=== PATIENT | male | born 1950 | race Caucasian/White ===

== ENCOUNTER 2017-02-02 15:39 | Inpatient (IN) | payer OTHER ==
[~2017-02-02] VITALS: Ht 167.6 cm; Wt 65.8 kg
--- NOTE | ~2017-02-02 | EKG ---
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 : 1950 Requested By: Ashley Sanon Order Number: [id number] MD: Jn Walton Measurements Intervals [place] Rate: 60 P: 74 DC: 241 QRS: 41 QRSD: 104 T: 87 QT: 459 QTc: 459 Interpretive Statements Sinus rhythm Atrial premature complex Prolonged DC interval Probable left atrial enlargement Low voltage, extremity leads LVH with secondary repolarization abnormality Baseline wander in lead(s) V3 Compared to ECG 02/02/2017 16:50:39 Significant change was found Electronically Signed On 02-07-2017 7:35:47 CDT by Jn Walton [email or web address] <ELECTRONICALLY SIGNED> By: Jn Walton MD, [facility] 02/07/17 0735 183 183 Jn Walton MD, [facility] /EPI
--- NOTE | ~2017-02-02 | EKG ---
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 : 1950 Requested By: Randall Pressley Order Number: [id number] MD: Chetan Ramos Measurements Intervals [place] Rate: 65 P: 63 LA: 236 QRS: 27 QRSD: 106 T: 95 QT: 469 QTc: 488 Interpretive Statements Sinus rhythm Prolonged LA interval Probable left atrial enlargement Low voltage, extremity leads LVH with secondary repolarization abnormality Anterior ST elevation, probably due to LVH Borderline prolonged QT interval No previous ECG available for comparison Electronically Signed On 02-06-2017 8:18:59 CDT by Chetan Ramos [email or web address] <ELECTRONICALLY SIGNED> By: Chetan Ramos MD 02/06/17 0818 1546 1546 Chetan Ramos MD /[facility]
--- NOTE | ~2017-02-02 | CNG ---
[facility] [place] [address] CYTO-NONGYN REPORT PROCEDURE Name: LUIS GARCIA Room #: 205-P DIS IN M.R.#: [id number] Admission: 02/03/17 Date of : 54 Discharge: 02/07/17 Report #: [id number] Path Case #: [id number] CYTOPATHOLOGY REPORT COLLECTION DATE: 02/06/2017 RECEIVED DATE: 02/06/2017 SUBMITTING PHYS: Dr. Jesu Thakkar OTHER PHYS: Dr. Ashley Loco CLINICAL HISTORY: Chest pain. SPECIMEN(S) RECEIVED: A.Pleural fluid * * * * * * * * * * * * FINAL DIAGNOSIS: A. Pleural fluid: - No malignant cells identified. Reactive mesothelial cells and inflammatory cells are identified. PATHOLOGIST: Thais Lozano M.D. REPORT ELECTRONICALLY SIGNED BY: Thais Lozano M.D. DATE/TIME: 02/07/2017 14:58 * * * * * * * * * * * * GROSS PATHOLOGY: A. Pleural fluid: The specimen is submitted unfixed, labeled "Luis Garcia". Received by the Cytology Department is 10 mL of clear yellow fluid. One ThinPrep slide and a cell block were prepared. (clt 02.06.2017) DEPUTY CLERK OF SUPERIOR COURT(S): Shelley Arteaga, RUTH(ASCP), IAC INITIAL CPT CODE(S): A; 77802, 69899 Professional services performed by [facility] at [facility] [address], [place] [address] Technical services performed by [facility] at [address] [place] [address]., [address], [place] [address]. [facility] [address] [place] [address], [facility] [address] [place], [place] [address] [place] [address] [place] [address] CYTO-NONGYN REPORT PROCEDURE Name: LUIS GARCIA Room #: 205-P DIS IN M.R.#: [id number] Admission: 02/03/17 Date of : 54 Discharge: 02/07/17 Report #: [id number] Path Case #: [id number] PHONE: [phone] DIRECTOR: Todd Leigh M.D. * * * END OF REPORT * * *
--- NOTE | ~2017-02-02 | EKG ---
[address] [address] ELECTROCARDIOGRAM REPORT Name: LUIS GARCIA Room #: 205-P ADM IN M.R.#: [id number] Admission: 02/03/17 Attend Phys: Ashley Sanon Discharge: Date of : 54 Report #: [id number] THIS REPORT FOR: //name// 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 : 1950 Requested By: Ashley Sanon Order Number: [id number] MD: Chetan Ramos Measurements Intervals [place] Rate: 63 P: 32 HI: 235 QRS: 10 QRSD: 113 T: 82 QT: 473 QTc: 485 Interpretive Statements Sinus rhythm Atrial premature complex Prolonged HI interval Borderline low voltage, extremity leads LVH with secondary repolarization abnormality Anterior ST elevation, probably due to LVH Borderline prolonged QT interval No previous ECG available for comparison Electronically Signed On 02-06-2017 8:19:40 CDT by Chetan Ramos [email or web address] <ELECTRONICALLY SIGNED> By: Chetan Ramos MD 02/06/17 0819 1650 165 Chetan Ramos MD /EPI
--- NOTE | ~2017-02-02 | HC ---
[facility] [address] [address] CONSULTATION Name: LUIS GARCIA Room #: 205-P [facility] IN M.R.#: [id number] Admission: 02/03/17 Attend Phys: Ashley Sanon Discharge: Date of : 54 Report #: [id number] THIS REPORT FOR: //name// CC: Savage Sanon DATE OF SERVICE: 02/03/2017 REASON FOR CONSULTATION: End-stage renal disease. HISTORY OF PRESENT ILLNESS: This 66-year-old gentleman with chronic kidney disease has intermittently dialyzed over the last year. It is a function in left upper arm fistula. He dialyzed in [place] but was noncompliant. He eventually was admitted to [place] where he has been dialyzing but only intermittently maybe once a week. He is an inpatient there. He is unclear as to the etiology of his renal failure, but he has had hypertension, no diabetes. PAST MEDICAL HISTORY: He has had lung cancer with left upper lobectomy and right middle lobectomy within the past year. No chemotherapy or adjuvant therapy noted. He has had hypertension. SOCIAL HISTORY: Heavy smoker for a long time. He is smoking less now, chronic oxygen therapy with COPD. REVIEW OF SYSTEMS: GENERAL: He is feeling fair. EYES: His vision has been down a bit. ENT: Hearing okay, swallows okay. Denies mouth ulcers. ENDOCRINE: No diabetes or thyroid disease. RESPIRATORY: Easily short-winded on chronic oxygen. CARDIAC: He has had heart failure, but no angina or stents or known coronary artery disease. GASTROINTESTINAL: Appetite has been poor. Denies vomiting or bloody stool. GENITOURINARY: Continues to make good amount of urine, no dysuria. NEUROLOGIC: Denies seizure, syncope, stroke or neuropathy. PSYCHIATRIC: Positive anxiety. Denies depression. PHYSICAL EXAMINATION: GENERAL: This is a reasonably well-appearing gentleman in no acute distress. SKIN: Multiple tattoos. SKELETAL: No arthritis. HEENT: Extraocular movements are full. No scleral icterus. Hearing and vision intact. Mucous membranes are moist. NECK: Supple. CHEST: Clear to auscultation. HEART: Regular. [facility] [address] [place] [address] CONSULTATION Name: LUIS GARCIA Room #: 205-P [facility] IN M.R.#: [id number] Admission: 02/03/17 Attend Phys: Ashley Sanon Discharge: Date of : 54 Report #: [id number] ABDOMEN: Soft and nontender. EXTREMITIES: No edema. Pulses intact. NEUROLOGIC: Grossly intact. LABORATORY DATA: Creatinine 3.4, BUN 21, potassium 3.9. ASSESSMENT AND PLAN: 1. Chronic kidney disease. He has been on and off dialysis. He has chronic kidney disease. It is unclear as to whether he really will require chronic dialysis or not. We will watch his I and O, we will watch his labs. We will schedule no dialysis for today. 2. Status post lung cancer with left upper lobectomy and right middle lobectomy, no apparent active disease. 3. Severe chronic obstructive pulmonary disease, oxygen requiring. 4. Possible pneumonia, on treatment. 5. Hypertension, on some meds. We will follow along. <ELECTRONICALLY SIGNED> By: Jose Matthews MD 02/06/17 1048 0939 1309 Jose Matthews MD /nt
--- NOTE | ~2017-02-02 | HC ---
[facility] [place] [address] CONSULTATION Name: LUIS GARCIA Room #: 205- ADM IN M.R.#: [id number] Admission: 02/03/17 Attend Phys: Ashley Sanon Discharge: Date of : 54 Report #: [id number] THIS REPORT FOR: //name// CC: Savage Sanon MD DATE OF SERVICE: 02/03/2017 REFERRING PROVIDER: Dr. Sanon. REASON FOR CONSULTATION: Pleural effusion, shortness of breath. CHIEF COMPLAINT: Chest pain. HISTORY OF PRESENT ILLNESS: Our group was asked to see the patient by Dr. Sanon while hospitalized at [facility]; a 66-year-old male with a pulmonary history significant by patient report of two separate malignancies in the past year. He has undergone thoracotomy at the left upper lobe, lobectomy and a video-study assistant thoracoscopy and a right middle lobe lobectomy in [facility] for two separate synchronous primary malignancies by patient report. The patient had been not able to live independently since that time due to hypoxemia, had been living at [facility] began having chest pains yesterday evening. The patient did not take any of his nitroglycerin and did not feel well, apparently is somewhat noncompliant with some of his medications. In the Emergency Department, a chest x-ray revealed a moderate right pleural effusion, possible atelectasis. The patient has had some productive cough, but unable to produce any sputum or expectorating sputum. Denies any fevers, chills or sweats. ALLERGIES: Unknown. PAST MEDICAL HISTORY: 1. End-stage kidney disease, on hemodialysis. 2. History of synchronous primary malignancies by patient report as described in HPI. 3. COPD. 4. Chronic hypoxemic respiratory failure. 5. Post-traumatic stress disorder. 6. Hypertension CURRENT INPATIENT MEDICATIONS: 1. DuoNeb. 2. Aspirin. 3. Azithromycin. 4. Diltiazem. [facility] [address] [place] [address] CONSULTATION Name: LUIS GARCIA Room #: 205-[facility] IN M.R.#: [id number] Admission: 02/03/17 Attend Phys: Ashley Sanon Discharge: Date of : 54 Report #: [id number] 5. Ceftriaxone. 6. Torsemide. 7. Flonase. 8. Hydrocodone. 9. Nephrocaps. 10. Zoloft. 11. Xanax. 12. Zestril. 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 FAMILY HISTORY: Negative for any significant pulmonary disease. REVIEW OF SYSTEMS: CONSTITUTIONAL: No fevers, chills or sweats, change in weight or appetite. ENT: No upper respiratory congestion, rhinorrhea or dysphagia. CARDIOVASCULAR: Chest pain as described, somewhat pleuritic in nature. GASTROINTESTINAL: No nausea, vomiting, diarrhea, constipation or abdominal pain. GENITOURINARY: No dysuria, no frequency. INTEGUMENT: Denies any new rash. MUSCULOSKELETAL: No joint pains or swelling. Rest of 12 point review of systems negative except as described in HPI. PHYSICAL EXAMINATION: VITAL SIGNS: Afebrile, pulse 100 and regular, respiratory rate 16, blood pressure 186/88, oxygen saturation 95% on 3 liters. GENERAL: This is a middle-aged male, does not appear in any distress. HEENT: Clear oropharynx, Mallampati 1 airway. NECK: Supple, no lymphadenopathy or thyromegaly. LUNGS: Markedly diminished one-half up on the right with dullness to percussion, bronchial breath sounds over that area, no wheezes appreciated. CARDIOVASCULAR: Heart regular. No murmurs noted. ABDOMEN: Soft, nontender, no masses. EXTREMITIES: Left upper extremity AV fistula with palpable thrill, only trace edema. LABORATORY DATA: White blood cell count 6000, hemoglobin 8.7, hematocrit 26, platelet count 113. Sodium 131, potassium 3.9, chloride 99, bicarbonate 29, BUN 21, creatinine 3.4 and glucose 122. INR 1.2. Chest x-ray, moderate right pleural effusion. ProBNP was over 70,000. IMPRESSION: 1. Right pleural effusion, worrisome for parapneumonic effusion or a malignant [address] [address] CONSULTATION Name: LUIS GARCIA Room #: 205-P [facility] IN M.R.#: [id number] Admission: 02/03/17 Attend Phys: Ashley Sanon Discharge: Date of : 54 Report #: [id number] effusion given his past history. We do not know if it is chronic or acute. This may account for some of his chest pain findings, warrants further workup with CT of the chest and probable thoracentesis. 2. Chest pain, likely secondary to #1, less likely cardiac in origin. 3. History of prior lung malignancy. 4. End-stage kidney disease, on hemodialysis. 5. Hypertension. 6. Chronic hypoxemic respiratory failure. SUGGESTIONS: 1. CT of the chest. 2. Thoracentesis of the right if indicated. 3. Obtain records from [facility]. 4. Continue his bronchodilators, antibiotics systemic steroids should be added if any significant bronchospasm is noted. 5. Urinary pneumococcal legionella antigen test. 6. Await blood cultures and sputum cultures. 7. Further recommendations to follow. Thank you for requesting our suggestions, we will follow along with you. By: 1814 0510 Jesu Thakkar MD /elin
--- NOTE | ~2017-02-02 | 2DMMODE ---
[facility] [address] [place] [address] 2 D/M-MODE ECHOCARDIOGRAM Name: LUIS GARCIA Room #: 205-P ADM IN M.R.#: [id number] Admission: 02/02/17 Attend Phys: Ashley Don Discharge: Date of : 54 Date of Service: 02/03/17 1459 Report #: [id number] THIS REPORT FOR: //name// APPROVED REPORT Study performed: 02/03/2017 11:30:33 EXAM: Comprehensive 2D, Doppler, and color-flow Echocardiogram Patient Location: Bedside Room #: 205 Blood Pressure: 180/93 mmHg HR: 98 bpm Other Information Study Quality: Good Indications Congestive Heart Failure COPD Dyspnea CAD Chest Pain 2D Dimensions RVDd: 32.83 mm LVEF(%): 30.58 (>50%) IVSd: 11.83 (7-11mm) LVOT Diam: 20.04 (18-24mm) LVDd: 61.98 mm PWd: 7.49 (7-11mm) Ascending Ao: 30.52 (22-36mm) LVDs: 52.87 (25-40mm) Aortic Root: 29.42 mm IVC: 22.00 mm Mckeon's LVEF: 30.58 % Volumes Left Atrial Volume (Systole) Single Plane 4CH: 87.97 mL Single Plane 2CH: 118.58 mL LA ESV Index: 63.00 mL/m2 Aortic Valve AoV Peak Reinier.: 1.71 m/s AO Peak Gr.: 11.64 mmHg LVOT Max P.81 mmHg LVOT Max V: 1.21 m/s TOM Vmax: 2.23 cm2 [facility] [address] [place] [address] 2 D/M-MODE ECHOCARDIOGRAM Name: LUIS GARCIA Room #: 205-P ADM IN M.R.#: [id number] Admission: 02/02/17 Attend Phys: Ashley Don Discharge: Date of : 54 Date of Service: 02/03/17 1459 Report #: [id number] Mitral Valve IVRT: 69.20 ms Pulmonary Valve PV Peak Reinier.: 1.48 m/s PV Peak Gr.: 8.77 mmHg Tricuspid Valve TR Peak Reinier.: 3.18 m/s RAP Estimate: 10.00 mmHg TR Peak Gr.: 40.50 mmHg PA Pressure: 51.00 mmHg Left Ventricle The left ventricle is normal size. There is mild hypokinesis in the apical septal wall. There is mild hypokinesis in the mid-inferoseptal wall. There is moderate hypokinesis in the inferior wall. There is severe hypokinesis in the posterior wall. Mild concentric left ventricular hypertrophy. Left ventricular systolic function is mildly decreased. LVEF is 40-45%. This study is not technically sufficient to allow evaluation of the LV diastolic function. Right Ventricle The right ventricle is normal size. The right ventricular systolic function is normal. Atria Left atrium is dilated. Right atrium is dilated. Aortic Valve The aortic valve is normal in structure. Aortic valve is calcified. No aortic regurgitation is present. There is no aortic valvular stenosis. Mitral Valve The mitral valve is normal in structure. Mild mitral regurgitation. No evidence of mitral valve stenosis. Tricuspid Valve The tricuspid valve is normal in structure. There is mild tricuspid regurgitation. The right atrial pressure is estimated at 10 mmHg. There is moderate pulmonary hypertension. The estimated PAP was 51 mmHg. Pulmonic Valve The pulmonary valve is normal in structure. Mild pulmonic regurgitation. [facility] [address] [place] [address] 2 D/M-MODE ECHOCARDIOGRAM Name: LUIS GARCIA Room #: 205-P ADM IN M.R.#: [id number] Admission: 02/02/17 Attend Phys: Ashley Don Discharge: Date of : 54 Date of Service: 02/03/17 1459 Report #: [id number] Great Vessels The aortic root is normal in size. IVC is dilated and collapses >50% with inspiration. Pericardium There is no pericardial effusion. <Conclusion> The left ventricle is normal size. There is mild hypokinesis in the apical septal wall. There is mild hypokinesis in the mid-inferoseptal wall. There is moderate hypokinesis in the inferior wall. There is severe hypokinesis in the posterior wall. LVEF is 40-45%. Left atrium is dilated. Right atrium is dilated. The aortic valve is normal in structure. Aortic valve is calcified. The mitral valve is normal in structure. Mild mitral regurgitation. Mild pulmonic regurgitation. <ELECTRONICALLY SIGNED> By: Sonny Garvey MD 02/03/17 1459 1459 1459 Sonny Garvey MD /INF
[2017-02-02 15:41] VITALS: BP 164/77
[2017-02-02 16:17] LABS: BASOPHILS 0.9 % (0.0-2.0); EOSINOPHILS 6.3 % (0.0-3.0); HEMOGLOBIN 8.7 gm/dL (14.0-18.0); LYMPHOCYTES 15.4 % (24.0-44.0); MCH 30.7 pg (26.0-34.0); MCHC 33.4 g/dL (28.0-37.0); MCV 91.7 fL (80.0-100.0); MONOCYTES 9.3 % (1.0-8.0); PLATELET COUNT 113 thou/uL (150-400); POLYS 68.1 % (36.0-66.0); RBC 2.83 mil/uL (4.50-6.00); RDW 19.2 % (10.5-14.5); WBC 5.9 thou/uL (4.0-11.0)
[2017-02-02 16:19] LABS: MANUAL DIFF NO
[2017-02-02 16:27] LABS: ANION GAP 3 mmol/L (7-16); BUN 21 mg/dL (7-18); CALCIUM 8.5 mg/dL (8.5-10.1); CHLORIDE 99 mmol/L (98-107); CO2 29 mmol/L (21-32); CREATININE 3.4 mg/dL (0.7-1.3); GLUCOSE 122 mg/dL (74-106); POTASSIUM 3.9 mmol/L (3.5-5.1); SODIUM 131 mmol/L (136-145)
[2017-02-02 16:32] LABS: INR 1.2; PROTIME 12.5 Seconds (9.3-11.4)
[2017-02-02 16:40] LABS: TROPONIN-I 0.06 ng/mL (<0.04-0.07)
[2017-02-02 16:59] LABS: NT-PRO BRAIN NAT PEPTIDE > 70000 pg/mL (<300)
[2017-02-02 18:08] VITALS: BP 174/72
[2017-02-02 19:29] VITALS: BP 154/70
[2017-02-03 00:05] VITALS: BP 158/86
[2017-02-03 04:45] VITALS: BP 149/93
[2017-02-03 08:10] VITALS: BP 180/93
[2017-02-03] MEDS ORDERED: XANAX 0.5 MG0.5 MG PO (10:04)
[2017-02-03] MEDS ORDERED: NORVASC5 MG PO (10:04)
[2017-02-03] MEDS ORDERED: ASPIRIN325 PO (10:05)
[2017-02-03] MEDS ORDERED: COREG25 MG PO (10:06)
[2017-02-03] MEDS ORDERED: CLONIDINE0.1 PO (10:07)
[2017-02-03] MEDS ORDERED: COLACE100 MG PO (10:08)
[2017-02-03] MEDS ORDERED: CARDIZEM CD240 MG PO (10:10)
[2017-02-03] MEDS ORDERED: EPOGEN4000 UNIT/ IV (10:13)
[2017-02-03] MEDS ORDERED: FLONASE 0.05%50 MCG NASAL (10:13)
[2017-02-03] MEDS ORDERED: MUCINEX TA600 MG/TA2 PO (10:14)
[2017-02-03] MEDS ORDERED: DUONEB 2.5-0.5 M3 ML INH (10:14)
[2017-02-03] MEDS ORDERED: ISOSORBIDE MONO30 M1 PO (10:15)
[2017-02-03] MEDS ORDERED: MAGOX 400400 MG PO (10:16)
[2017-02-03] MEDS ORDERED: LASIX 80 MG TAB80 MG PO (10:16)
[2017-02-03] MEDS ORDERED: MELATONIN3 MG PO (10:17)
[2017-02-03] MEDS ORDERED: MIRALAX17 GM PO (10:17)
[2017-02-03] MEDS ORDERED: NITROGLYCERIN0.4 MG SUBLING (10:19)
[2017-02-03] MEDS ORDERED: NYSTATIN 1100000 U/M SW&SWALLOW (10:21)
[2017-02-03] MEDS ORDERED: PRAZOSIN 1 MG CA1 MG PO (10:22)
[2017-02-03] MEDS ORDERED: PERCOCET PO (10:22)
[2017-02-03 10:23] LABS: % SATURATION 30 % (20-39); IRON 54 ug/dL (65-175); TIBC 179 ug/dL (250-450); UIBC 125 ug/dL
[2017-02-03] MEDS ORDERED: RESTORIL15 MG PO (10:23)
[2017-02-03] MEDS ORDERED: PREDNISONE 20 M20 MG PO (10:23)
[2017-02-03] MEDS ORDERED: ZOLOFT50 MG PO (10:24)
[2017-02-03] MEDS ORDERED: FLOMAX0.4 MG PO (10:24)
[2017-02-03] MEDS ORDERED: TYLENOL325 MG PO (10:25)
[2017-02-03 11:55] VITALS: BP 182/90
[2017-02-03 19:00] VITALS: BP 176/89
[2017-02-04 03:45] LABS: ALBUMIN 2.5 g/dL (3.4-5.0); PHOSPHORUS 3.9 mg/dL (2.5-4.9); POTASSIUM 5.1 mmol/L (3.5-5.1)
[2017-02-04 03:49] LABS: CREATININE 4.8 mg/dL (0.7-1.3)
[2017-02-04 04:36] VITALS: BP 163/82
[2017-02-04 08:00] VITALS: BP 154/78
[2017-02-04 11:30] LABS: BF NUCLEATED CELLS 124; BF RBC 379
[2017-02-04 11:35] LABS: CLARITY CLEAR; COLOR YELLOW; TOTAL VOLUME 50 mL
[2017-02-04 16:40] VITALS: BP 120/53
[2017-02-04 17:08] LABS: BF MACROPHAGE 71; BF NEUTROPHILS 18; MANUAL DIFF YES
[2017-02-04 19:33] VITALS: BP 155/60
[2017-02-05 03:58] VITALS: BP 160/65
[2017-02-05 06:06] LABS: BODY FLUID ALBUMIN 0.7 g/dL (()); BODY FLUID AMYLASE 6 U/L (()); BODY FLUID GLUCOSE 127 mg/dL (()); BODY FLUID LDH 66 IU/L (()); BODY FLUID PROTEIN 1.4 g/dL (())
[2017-02-05 07:51] VITALS: BP 165/68
[2017-02-05 11:15] VITALS: BP 145/62
[2017-02-05 15:40] VITALS: BP 117/34
[2017-02-05 19:53] VITALS: BP 139/76
[2017-02-06 03:23] VITALS: BP 171/76
[2017-02-06 07:15] VITALS: BP 178/74
[2017-02-06 08:15] VITALS: BP 178/74
[2017-02-06] MEDS ORDERED: COZAAR 50 MG TA50 M1 PO (08:36)
[2017-02-06] MEDS ORDERED: PERCOCET PO (08:37)
[2017-02-06] MEDS ORDERED: RESTORIL15 MG PO (08:37)
[2017-02-06] MEDS ORDERED: XANAX 0.5 MG0.5 MG PO (08:37)
[2017-02-06 12:00] VITALS: BP 167/79
[2017-02-06] MEDS ORDERED: KEFLEX250 MG PO (12:16)
[2017-02-06] MEDS ORDERED: AZITHROMYCIN 2250 MG PO (12:16)
[2017-02-06 16:20] VITALS: BP 124/69; BP 169/69
[2017-02-06 22:02] VITALS: BP 144/64
[2017-02-07 02:40] VITALS: BP 163/71
[2017-02-07 02:42] LABS: ALBUMIN 2.6 g/dL (3.4-5.0); CALCIUM 7.9 mg/dL (8.5-10.1); CREATININE 4.4 mg/dL (0.7-1.3); PHOSPHORUS 3.5 mg/dL (2.5-4.9)
[2017-02-07] MEDS ORDERED: OXYCONTIN10 M1 PO (08:52)
== END 2017-02-07 15:00 | DRG 177 ==
LOC: ER 15:39 → EROBS 17:26 → 2N 17:26
PROVIDERS: Emergency Medicine; Internal Medicine Nephrology; Internal Medicine Pulmonary Disease
PROC: BB4BZZZ Ultrasonography of Pleura (ICD-10-PCS; principal; 2017-02-04)
PROC: 0W993ZZ Drainage of Right Pleural Cavity, Percutaneous Approach (ICD-10-PCS; principal; 2017-02-04)
DX: J69.0 Pneumonitis due to inhalation of food and vomit (principal); N18.6 End stage renal disease; I50.23 Acute on chronic systolic (congestive) heart failure; J96.11 Chronic respiratory failure with hypoxia; I13.2 Hypertensive heart and chronic kidney disease with heart failure and with stage 5 chronic kidney disease, or end stage renal disease; I42.9 Cardiomyopathy, unspecified; J90 Pleural effusion, not elsewhere classified; J44.9 Chronic obstructive pulmonary disease, unspecified; F17.210 Nicotine dependence, cigarettes, uncomplicated; F43.10 Post-traumatic stress disorder, unspecified; F12.90 Cannabis use, unspecified, uncomplicated; Z99.81 Dependence on supplemental oxygen; Z88.0 Allergy status to penicillin; Z88.2 Allergy status to sulfonamides; Z88.6 Allergy status to analgesic agent; Z79.82 Long term (current) use of aspirin; Z85.118 Personal history of other malignant neoplasm of bronchus and lung; Z79.899 Other long term (current) drug therapy; Z99.2 Dependence on renal dialysis
CPT/HCPCS: 10081; 32100